=== PATIENT | female | born 1985 | race Caucasian/White ===

== ENCOUNTER 2021-05-09 12:54 | Outpatient (REF) | payer MEDICARE, MEDICAID, SELFPAY ==
--- NOTE | ~2021-05-09 | CT_ITS ---
EXAMINATION: CT CHEST WITHOUT CONTRAST CLINICAL INFORMATION: Status post lung transplant. COMPARISON: Chest radiograph dated from 06/21/2018. TECHNIQUE: Multidetector volumetric CT imaging of the chest was done. Axial MIP volume rendering provided. Sagittal and coronal reformatted images were obtained. This CT examination was performed using dose optimization techniques as appropriate, variously including the following: *Automated exposure control *Adjustment of mA and/or kV according to patient size (this includes techniques or standardized protocols for targeted exams where dose is matched to indication/reason for exam; i.e. 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 LUNGS: Peripheral dependent linear opacities favoring to represent mild subsegmental atelectasis. No focal airspace opacities, suspicious pulmonary nodules or masses. There is very subtle mosaic attenuation of the lung parenchyma in the lung bases which could be related with some degree of minimal air trapping. The central airways are patent. MEDIASTINUM: Normal heart size without pericardial effusion. No mediastinal nor hilar lymphadenopathy. Mediastinal surgical clips and sternotomy wires are identified. Normal appearance of the thyroid gland. PLEURA: There is no pleural effusion. No pleural mass or thickening. AXILLA: No lymphadenopathy. UPPER ABDOMEN: Unremarkable. OSSEOUS STRUCTURES: Unremarkable. CT/CT chest wo con IMPRESSION: No acute cardiothoracic abnormalities. No suspicious pulmonary nodules.
== END 2021-05-09 12:55 | disposition home or self-care (01) ==
LOC: HO.CT 12:54
PROVIDERS: PCP Physician Assistant; Visit Provider Internal Medicine Pulmonary Disease
DX: Z94.2 Lung transplant status (principal)
CPT/HCPCS: 71250

== ENCOUNTER 2023-03-02 14:50 | Emergency (ER) | payer MEDICARE, MEDICAID, SELFPAY ==
--- NOTE | ~2023-03-02 | XR_ITS ---
EXAMINATION: XR HAND, RIGHT CLINICAL INFORMATION: Thumb injury. Pain. COMPARISON: None available. TECHNIQUE: PA, lateral, and oblique views of the right hand. FINDINGS: There is amputation of the soft tissues adjacent to the distal tuft of the thumb. There is question of a nondisplaced fracture of the distal tuft of the thumb seen on the oblique view only. No soft tissue foreign body is seen. XR/XR hand RT min 3V IMPRESSION: Amputation of the soft tissues of the distal thumb. Question nondisplaced fracture of the distal tuft of the thumb.
[2023-03-02 14:57] VITALS: BP 128/79; PULSE 69; RESP 20; TEMP 36.4; O2SAT 99; BMI 23.8
--- NOTE | 2023-03-02 14:58 | ED_ITS ---
HPI - General Adult General Chief complaint: Wound/Laceration Stated complaint: r thumb laceration Time Seen by Provider: 03/02/23 15:43 Source: patient Mode of arrival: ambulatory Limitations: no limitations History of Present Illness HPI narrative: 37 yo female with history of cystic fibrosis s/p double lung transplant in [place] 8 years ago who presents to the ER today for evaluation after she cut the tip of her right thumb off with a mandolin while cutting sweet potatoes today. She reports excruciating pain and inability to stop the bleeding. She arrives to the ER with a dish towel on the finger and active oozing. She felt like she was going to pass out but is feeling a little better now. She is not on blood thinners. She denies any other injuries. MD complaint: right thumb tip avulsion Onset (ago): minute(s) Location: right and upper extremity Radiation: distal Severity: severe Severity scale (1-10): 10 Quality: burning, stabbing and aching Pain Consistency: constant Relieving factors: none and rest Exacerbating factors: other (palpation and movement) Associated symptoms: other (anxiety) Treatments prior to arrival: none Related Data Previous Rx's Medication Instructions Recorded amoxicillin 875 mg-potassium 1 tab PO BID #14 tabs 03/02/23 clavulanate 125 mg tablet oxycodone 5 mg tablet 5 mg PO Q6H PRN severe pain (scale 03/02/23 score 7-10) #10 tabs Allergies Allergy/AdvReac Type Severity Reaction Status Date / Time ceftazidime [CEFTAZIDIME] Allergy Unknown UNKNOWN Verified 03/02/23 15:47 ciprofloxacin [From Cipro] AdvReac Vomiting Verified 03/02/23 15:47 Ceftazidime Allergy Unknown hives Uncoded 02/09/12 00:00 Review of Systems Review of Systems: Yes all other systems are reviewed and are negative PMFSH Social History Social History Advance Directives: Yes Advance Directives Information Provided: No Advance Directives on File: No Physical Exam ED Vital Signs: Vital Signs - 24 hr 03/02/23 14:57 Temperature 97.6 F Pulse Rate 69 Respiratory Rate 20 Blood Pressure 128/79 Pulse Oximetry 99 Oxygen Delivery Method Room Air BMI result Body Mass Index 23.8 Appearance: Alert. Oriented X3. No acute distress. HEENT: normal inspection CVS: Normal heart rate and rhythm. Pulses normal. Respiratory: No respiratory distress. Skin: Skin warm and dry. Normal skin color. Normal skin turgor. No rashes. Extremities: right distal thumb with a complete avulsion of the tip, does not involve the nail. active oozing from the site. FROM of the digit. 2+ radial pulse Neuro: Oriented X 3. No motor deficit. No sensory deficit. Course Course Course Narrative: RME performed by Kasandra Nelson PA-C. Patient is a 37 year old assigned female at , history of CF - bilateral lung transplant, presenting to the emergency department with a right thumb injury. Patient was using a mandolin when she cut off the tip of her right thumb. R hand xr ordered. Patient placed back in the waiting room pending room availability and results. Reevaluation(s) Reevaluation #1: patient in a lot of pain and anxious. given oxycodone and ativan. finger placed combination of TXA and lidocaine with improvement in bleeding but not complete resolution surgicel applied with hemostatsis. sterile, bulky dressing applied and wound care d/w pt and family xr w/ possible nondisplaced distal tuft fx, abx started and will refer to Dr. Herring patient stable for d/c home as bleeding as stopped Time: 16:48 Medications Administered Discontinued Medications Generic Name Dose Route Start Last Admin Trade Name Freq PRN Reason Stop Dose Admin Diphtheria/Tetanus/Acell Pertussis 0.5 ml 03/02/23 14:59 03/02/23 15:47 Diphth,Pertus(Acell),Tet Adult 0.5 Ml Syringe IM 03/02/23 15:00 0.5 ml .ONCE ONE Administration Lidocaine HCl 5 ml 03/02/23 16:23 03/02/23 16:36 Lidocaine Hcl 1 % Mpf 5 Ml Vial SUBCUT 03/02/23 16:24 5 ml ONCE ONE Administration Lidocaine/Epinephrine 10 ml 03/02/23 16:19 03/02/23 16:36 Lidocaine Hcl 1% Pf/Epi 1:200,000 10 Ml Vial INFILTRATI 03/02/23 16:20 Not Given ONCE ONE Lidocaine/Epinephrine 20 ml 03/02/23 16:20 03/02/23 16:36 Lidocaine Hcl 1%/Epi 1:100,000 20 Ml Vial INFILTRATI 03/02/23 16:21 Not Given ONCE ONE Lidocaine/Epinephrine 10 ml 03/02/23 16:22 03/02/23 16:36 Lidocaine Hcl 2% Pf/Epi 1:200 10 Ml Vial INFILTRATI 03/02/23 16:23 Not Given ONCE ONE Lorazepam 1 mg 03/02/23 16:29 03/02/23 16:36 Lorazepam 1 Mg Tablet PO 03/02/23 16:30 1 mg ONCE ONE Administration Oxycodone HCl 5 mg 03/02/23 15:50 03/02/23 15:53 Oxycodone Hcl Immed Release 5 Mg Tablet PO 03/02/23 15:51 5 mg ONCE ONE Administration Oxycodone HCl 5 mg 03/02/23 16:29 03/02/23 16:35 Oxycodone Hcl Immed Release 5 Mg Tablet PO 03/02/23 16:30 5 mg ONCE ONE Administration Tranexamic Acid 500 mg 03/02/23 16:24 03/02/23 16:36 Tranexamic Acid 1,000 Mg/10 Ml Vial IRRIGATION 03/02/23 16:25 500 mg ONCE ONE Administration Medical Decision Making Medical Decision Making MDM Narrative: 37 yo female w/ hx CF presenting w/ right thumb tip avulsion after using a mandolin today. actively bleeding on arrival. placed in finger tourniquet and soaked in TXA and lidocaine. required premedication w/ oxycodone and now requesting ativan due to anxiety and incr eased pain. xr reviewed- - no acute fracture or bony involvement noted, however x-ray read possible nondisplaced acute fx of distal tuft. will start on abx and refer to hand specialist/ortho. patient counseled on wound care, return precautions Differential Diagnosis Differential Diagnoses: The differential diagnosis associated with the presentation includes finger avulsion, distal amputation, open finger fracture Independent Interpretation I performed an independent interpretation of an: Plain X-Ray Interpretation: xray without any displaced fx, agree w/ radiology read Radiology Impression Discussion of test interpretation with radiology: I have reviewed the radiologist's reading. Radiologist Impression: EXAMINATION: XR HAND, RIGHT CLINICAL INFORMATION: Thumb injury. Pain. COMPARISON: None available. TECHNIQUE: PA, lateral, and oblique views of the right hand. FINDINGS: There is amputation of the soft tissues adjacent to the distal tuft of the thumb. There is question of a nondisplaced fracture of the distal tuft of the thumb seen on the oblique view only. No soft tissue foreign body is seen. XR/XR hand RT min 3V IMPRESSION: Amputation of the soft tissues of the distal thumb. Question nondisplaced fracture of the distal tuft of the thumb. Independent Historian Clinical information obtained from an independent historian. History obtained from or confirmed by: Spouse External Record Review External record reviewed: Outpatient record, Prior outpatient labs and Prior outpatient radiology Prescription Management I considered prescription management with: Pain Medication and Antibiotic Chronic Conditions Patient?s care impacted by: Other (chronically immunosuppressed s/p bilateral lung transplant) Critical Care Time Critical Care Time Critical Care Time: No Discharge Plan Discharge Clinical Impression: Avulsion of skin of right thumb Qualifiers: Encounter type: initial encounter Qualified Code(s): S61.001A - Unspecified open wound of right thumb without damage to nail, initial encounter Patient Disposition: Home, Self-Care Instructions: Finger Amputation (ED) Additional Instructions: Your x-ray today showed possible nondisplaced fracture of the distal tuft of the thumb. You have partially avulsed the tip of the thumb off. Take the prescribed antibiotics as directed, complete the entire course and do not miss any doses Follow up with the Hand Specialist - call tomorrow to arrange an appointment If you have recurrent bleeding hold direct pressure to the area for 15 minutes. You can apply additional surgicel to the area to reinforce the dressing and help stop bleeding. Change the dressing daily Do not get wet for at least 48 hours. If you develop new or worsening symptoms call 911 or come back to the ER for further evaluation. Prescriptions: New amoxicillin-pot clavulanate 875-125 mg tablet 1 tab PO BID Qty: 14 0RF oxycodone 5 mg tablet 5 mg PO Q6H PRN (Reason: severe pain (scale score 7-10)) Qty: 10 0RF Rx Instructions: Partial Fill upon patient request. Referrals: [facility] [Provider Group] (XR/XR hand RT min 3V IMPRESSION: Amputation of the soft tissues of the distal thumb. Question nondisplaced fracture of the distal tuft of the thumb. ) Stand Alone Forms: Work/School Release Interventions: ED Discharge Assessment Last Done: 03/02/23 17:22 Discharge Date/Time: 03/02/23 17:23
[2023-03-02] MEDS: Diphth,Pertus(ACell),Tet Adult 0.5 ML SYRINGE IM (15:47)
[2023-03-02] MEDS: oxyCODONE HCl Immed Release 5 MG TABLET PO ×2 (15:53→16:35)
[2023-03-02] MEDS: Tranexamic Acid 1,000 MG/10 ML VIAL 500 MG IRRIGATION (16:36)
[2023-03-02] MEDS: LORazepam 1 MG TABLET PO (16:36)
[2023-03-02] MEDS: Lidocaine HCl 1 % MPF 5 ML VIAL SUBCUT (16:36)
== END 2023-03-02 17:23 | disposition home or self-care (01) ==
PROVIDERS: Emergency Provider Emergency Medicine Emergency Medical Services
DX: S61.011A Laceration without foreign body of right thumb without damage to nail, initial encounter (principal); S62.524A Nondisplaced fracture of distal phalanx of right thumb, initial encounter for closed fracture; S60.311A Abrasion of right thumb, initial encounter; W26.9XXA Contact with unspecified sharp object(s), initial encounter; Y93.9 Activity, unspecified; Y92.9 Unspecified place or not applicable; Y99.9 Unspecified external cause status; Z79.899 Other long term (current) drug therapy; Z23 Encounter for immunization
CPT/HCPCS: 73130; 90471; 90715; 99284

== ENCOUNTER 2023-03-09 08:56 | Outpatient (AMB) | payer MEDICARE, MEDICAID, SELFPAY ==
--- NOTE | 2023-03-09 08:58 | MHC.OFFVIS ---
Intake Intake Visit Reasons: OV-Right Thumb laceration Intake Note: Radha Treadwell is a 37 year old - hand female who presents today for a evaluation of her right thumb laceration, DOI 03/02/23. Patient reports she cut the tip of her right thumb off with a mandolin while cutting sweet potatoes. She states her thumb feels sore to touch. Allergies ceftazidime [CEFTAZIDIME] Allergy (Unknown, Verified 03/09/23 08:59) UNKNOWN ciprofloxacin [From Cipro] Adverse Reaction (Verified 03/09/23 08:59) Vomiting Ceftazidime Allergy (Unknown, Uncoded 02/09/12 00:00) hives HPI OV-Right Thumb laceration HPI Details 37-year-old female who presents in the office today, as a new patient, for an evaluation of right thumb amputation. The patient presented to the ED on 03/02/2023 status post cutting the tip of her right thumb off with a mandolin while cutting sweet potatoes. X-rays of the right hand were obtained. She was prescribed amoxicillin-pot clavulanate 875-125 mg PO BID and oxycodone 5 mg PO Q6H PRN. While in the office today she states her thumb feels sore to the touch. Review of Systems Const All systems reviewed & are unremarkable except as noted in HPI and below Physical Exam Const General: cooperative and no acute distress Orientation/consciousness: patient oriented x3 Resp Effort & Inspection: normal respiratory effort and able to speak in complete sentences Cardio Peripheral pulses: Peripheral pulses 2+ throughout Skin General skin exam: no rashes or lesions noted Neuro General: patient oriented x3 Extrem Other: Right thumb: Avulsion of skin at the tip of the right thumb. Minimal effect to the distal nail bed. No surrounding erythema or drainage. No signs of infection. Able to flex and extend at the IP and CMC joint. Sensation intact. Capillary refill is brisk. Office Procedures Fracture Care Fracture Billing Code: Fracture Billing Code Assessment & Plan Assessment & Plan (1) Open fracture of tuft of distal phalanx of right thumb: Code(s): S62.521B - Displaced fracture of distal phalanx of right thumb, initial encounter for open fracture (2) Avulsion of skin of right thumb: Code(s): S61.001A - Unspecified open wound of right thumb without damage to nail, initial encounter Qualifiers: Encounter type: initial encounter Qualified Code(s): S61.001A - Unspecified open wound of right thumb without damage to nail, initial encounter Plan Ms. Tariq is a 37-year-old female who presents in the office today, as a new patient, for an evaluation of right thumb amputation. The patient presented to the ED on 03/02/2023 status post cutting the tip of her right thumb off with a mandolin while cutting sweet potatoes. X-rays of the right hand were obtained. She was prescribed amoxicillin-pot clavulanate 875-125 mg PO BID and oxycodone 5 mg PO Q6H PRN. While in the office today she states her thumb feels sore to the touch. Surgicel was applied at the ED. This was removed while in the office today. Patient was extremely apprehensive of this. She tolerated the procedure well. The wound was redressed with Xeroform and a bandaid. She should avoid getting the area wet. She has been taking amoxicillin-pot , with today being her last dose. She was educated on signs of infection, which are as follows but not limited to erythema, edema, drainage, or warmth. If she is to experience any of these symptoms she is to contact the office immediately or present to the ED. She will be given supplies while in the office today to allow for once daily dressing changes. Follow up will be in 1 week for a wound check, or sooner if needed. X-rays of the right hand, obtained on 03/02/2023, revealed: 1. Amputation of the soft tissues of the distal thumb. 2. Question nondisplaced fracture of the distal tuft of the thumb. Patient Instructions: Scribed for Carrie Roger PA-C by Nandini Pedraza certified medical transcriptionist, on 03/09/2023 at 9:08 am, EST. Coding Level of Care Code New Pt Level 4 (73623) Diagnoses Open fracture of tuft of distal phalanx of right thumb S62.521B Avulsion of skin of right thumb S61.001A Encounter type: initial encounter CPT Codes Fracture Care - Fracture Billing Code: Fracture Billing Code ([id number])
== END 2023-03-09 09:57 | disposition home or self-care (01) ==
PROVIDERS: Visit Provider Physician Assistant
DX: S61.001A Unspecified open wound of right thumb without damage to nail, initial encounter (principal); Z48.00 Encounter for change or removal of nonsurgical wound dressing
CPT/HCPCS: 99204

== ENCOUNTER → 2023-03-09 08:56 | Outpatient (BNVA) | payer MEDICARE, MEDICAID, SELFPAY | PROVIDERS: Visit Provider Physician Assistant | DX: S61.011A Laceration without foreign body of right thumb without damage to nail, initial encounter (principal); W26.8XXA Contact with other sharp object(s), not elsewhere classified, initial encounter; Y93.G3 Activity, cooking and baking; Y92.9 Unspecified place or not applicable; Y99.9 Unspecified external cause status | CPT/HCPCS: 99202 ==

== ENCOUNTER 2023-07-31 10:21 | Emergency (ER) | payer OTHER, MEDICARE, MEDICAID, SELFPAY ==
--- NOTE | 2023-07-31 11:05 | ED_ITS ---
HPI - Wound/Laceration General Chief Complaint: Animal Bite Stated Complaint: Dog Bite Work Injury 07/31/23 Time Seen by Provider: 07/31/23 11:15 Source: patient Mode of arrival: ambulatory Limitations: no limitations History of Present Illness HPI narrative: 37 year old female with a past history cystic fibrosis s/p bilateral lung transplant years ago presents emergency department complaints a dog bite to the anterior and ankle which. 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 She reports the dog is roughly 15- 20 lbs. She states she did the clean up helper banquet whether not up-to-date on vaccines. She reports she has 3-4 is left anterior thigh, with controlled bleeding, and 1 wound on the medial left ankle which did not break the skin. She denies any weakness, paresthesias, or change in gait or range of motion. Related Data Previous Rx's Medication Instructions Recorded amoxicillin 875 mg-potassium 1 tab PO BID #14 tabs 03/02/23 clavulanate 125 mg tablet oxycodone 5 mg tablet 5 mg PO Q6H PRN severe pain (scale 03/02/23 score 7-10) #10 tabs amoxicillin 875 mg-potassium 1 tab PO Q12H 7 days #14 tabs 07/31/23 clavulanate 125 mg tablet Allergies Allergy/AdvReac Type Severity Reaction Status Date / Time ceftazidime [CEFTAZIDIME] Allergy Unknown UNKNOWN Verified 07/31/23 11:06 ciprofloxacin [From Cipro] AdvReac Vomiting Verified 07/31/23 11:06 Ceftazidime Allergy Unknown hives Uncoded 07/31/23 11:06 Review of Systems Review of Systems: Yes all other systems are reviewed and are negative Physical Exam Vital Signs: Vital Signs: Last Vital Signs Temp 98 F 07/31/23 11:06 Pulse 70 07/31/23 11:06 Resp 18 07/31/23 11:06 BP 168/96 H 07/31/23 11:06 Pulse Ox 100 07/31/23 11:06 O2 Del Method Room Air 07/31/23 11:06 BMI result Body Mass Index 24.5 Nursing notes and vital signs reviewed. GENERAL APPEARANCE: A&0 x 4, generally well appearing, no acute distress HENMT: Normal to inspection, atraumatic, face symmetrical. Normal external ears, nose, and oropharynx clear. EYE: PERRLA, EOM intact, structures appear normal NECK: Supple without stiffness or restricted ROM. HEART: Normal rate and regular rhythm, normal S1/S2, no M/R/G LUNGS: LS CTA, moving air well. Able to speak in complete sentences. No crackles, wheezes, or rhonchi auscultated BACK: No CVAT, no obvious deformity EXTREMITIES: Moving all extremities without difficulty. Normal capillary refill. Superficial wounds left anterior thigh with swelling and eccymosis noted. 2 mm wound left medial ankle NEUROLOGICAL: Alert and oriented, moving all 4 extremities with equal strength. CN not formally tested but appearing grossly intact. Observed to ambulate with normal gait. Cognition normal SKIN: Warm and dry without any lesions, rash, or visible sores Course Course Course Narrative: This is a rapid medical exam: Additional HPI, ROS, PE not included below will be deferred to primary provider. 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 Did not ask the dog clean up helper banquet about dog's vaccinations. HX double lung transplant 8 years ago for cystic fibrosis. Medical Decision Making Medical Decision Making MDM Narrative: Old records reviewed for previous imaging, lab studies, ECGs, and notes. Patient was assessed the emergency department with no acute distress or toxicity noted. Superficial wounds noted on left anterior thigh. No evidence of punture wounds. Swelling and eccymosis noted. Wound cleansed with hydrogen peroxide and water and dressed. Plan for 7 day course of antibiotics for infection prevention. Pt educated to keep wound clean and dry and use topical antibiotic ointment twice a day. Patient is safe for discharge at this time with plan for [id number] Tylenol and/or NSAID such as ibuprofen or naproxen for fever/discomfort with dosing as per packaging. HPI, PE, diagnostics, and plan discussed with patient and family with no unanswered questions at this time. Strict return precautions given to return to the emergency department with new, worsening, or concerning emergent symptoms. Recommended to follow-up with there primary care provider in 24-48 hours for further treatment and management. Differential Diagnosis Differential Diagnoses: The differential diagnosis associated with the presentation includes but not limited to animal bite, contusion, abrasion, laceration, puncture wound, strain, sprain, cellulitis, sepsis Discharge Plan Discharge Clinical Impression: Dog bite of thigh Instructions: Animal Bite (ED) Prescriptions: New amoxicillin-pot clavulanate 875-125 mg tablet 1 tab PO Q12H 7 Days Qty: 14 0RF No Action amoxicillin-pot clavulanate 875-125 mg tablet 1 tab PO BID Qty: 14 0RF oxycodone 5 mg tablet 5 mg PO Q6H PRN (Reason: severe pain (scale score 7-10)) Qty: 10 0RF Rx Instructions: Partial Fill upon patient request.
[2023-07-31 11:06] VITALS: BP 168/96; PULSE 70; RESP 18; TEMP 36.6; O2SAT 100; BMI 24.5
[2023-07-31 12:53] VITALS: BP 134/84; PULSE 84; RESP 16; TEMP 37; O2SAT 98
--- NOTE | 2023-07-31 12:58 | ED.ANIMALBIT ---
HPI - Animal Bite General Chief Complaint: Animal Bite Stated Complaint: Dog Bite Work Injury 07/31/23 Time Seen by Provider: 07/31/23 11:15 Source: patient Mode of arrival: ambulatory Limitations: no limitations History of Present Illness MD complaint: animal bite Related Data Previous Rx's Medication Instructions Recorded amoxicillin 875 mg-potassium 1 tab PO BID #14 tabs 03/02/23 clavulanate 125 mg tablet oxycodone 5 mg tablet 5 mg PO Q6H PRN severe pain (scale 03/02/23 score 7-10) #10 tabs amoxicillin 875 mg-potassium 1 tab PO Q12H 7 days #14 tabs 07/31/23 clavulanate 125 mg tablet Allergies Allergy/AdvReac Type Severity Reaction Status Date / Time ceftazidime [CEFTAZIDIME] Allergy Unknown UNKNOWN Verified 07/31/23 11:06 ciprofloxacin [From Cipro] AdvReac Vomiting Verified 07/31/23 11:06 Ceftazidime Allergy Unknown hives Uncoded 07/31/23 11:06 Physical Exam ED Vital Signs: Vital Signs - 24 hr 07/31/23 11:06 07/31/23 12:53 07/31/23 14:33 Temperature 98 F 98.6 F 98.4 F Pulse Rate 70 84 69 Respiratory Rate 18 16 19 Blood Pressure 168/96 H 134/84 164/93 H Pulse Oximetry 100 98 99 Oxygen Delivery Method Room Air Room Air Room Air 07/31/23 14:58 Temperature 98.4 F Pulse Rate 69 Respiratory Rate 18 Blood Pressure 164/93 H Pulse Oximetry 99 Oxygen Delivery Method Room Air BMI result Body Mass Index 24.5 Medications Administered Discontinued Medications Generic Name Dose Route Start Last Admin Trade Name Freq PRN Reason Stop Dose Admin Acetaminophen 650 mg 07/31/23 14:27 07/31/23 14:55 Acetaminophen 325 Mg Tablet PO 07/31/23 14:28 650 mg ONCE ONE Administration Rabies Immune Globulin 1,216 unit 07/31/23 12:55 07/31/23 13:34 Rabies Immune Globulin/Pf 900 Unit/3 Ml Vial 20 unit/kg (1216 unit) 07/31/23 12:56 1,216 unit IM Administration ONCE ONE Rabies Vaccine Human Diploid Cell 1 ml 07/31/23 12:55 07/31/23 13:34 Rabies Vaccine, Human Diploid (Imovax) 1 Ml Vial IM 07/31/23 12:56 1 ml .ONCE ONE Administration Discharge Plan Discharge Clinical Impression: Dog bite of thigh Patient Disposition: Home, Self-Care Instructions: Animal Bite (ED) Prescriptions: New amoxicillin-pot clavulanate 875-125 mg tablet 1 tab PO Q12H 7 Days Qty: 14 0RF No Action amoxicillin-pot clavulanate 875-125 mg tablet 1 tab PO BID Qty: 14 0RF oxycodone 5 mg tablet 5 mg PO Q6H PRN (Reason: severe pain (scale score 7-10)) Qty: 10 0RF Rx Instructions: Partial Fill upon patient request. Stand Alone Forms: Work/School Release Interventions: ED Discharge Assessment Last Done: 07/31/23 14:58 Discharge Date/Time: 07/31/23 15:00 Print Language: Macedonian
[2023-07-31] MEDS: Rabies Immune Globulin/PF 900 UNIT/3 ML VIAL 1216 UNIT IM (13:34)
[2023-07-31] MEDS: Rabies Vaccine, Human Diploid (Imovax) 1 ML VIAL IM (13:34)
[2023-07-31 14:33] VITALS: BP 164/93; PULSE 69; RESP 19; TEMP 36.9; O2SAT 99
[2023-07-31] MEDS: Acetaminophen 325 MG TABLET 650 MG PO (14:55)
[2023-07-31 14:58] VITALS: BP 164/93; PULSE 69; RESP 18; TEMP 36.9; O2SAT 99
[2023-08-01 01:40] LABS: Glucose, Whole Blood 89 mg/dL (60-115)
== END 2023-07-31 15:00 | disposition home or self-care (01) ==
PROVIDERS: Emergency Provider Emergency Medicine; PCP Registered Nurse
DX: S70.372A Other superficial bite of left thigh, initial encounter (principal); S90.572A Other superficial bite of ankle, left ankle, initial encounter; Z20.3 Contact with and (suspected) exposure to rabies; Z29.14 Encounter for prophylactic rabies immune globulin; E84.9 Cystic fibrosis, unspecified; Z94.2 Lung transplant status; W54.0XXA Bitten by dog, initial encounter; Y93.9 Activity, unspecified; Y92.9 Unspecified place or not applicable; Y99.0 Civilian activity done for income or pay
CPT/HCPCS: 82947; 90375; 90471; 90675; 96372; 99284

== ENCOUNTER 2023-08-03 11:55 | Outpatient (REF) | payer OTHER, MEDICARE, MEDICAID, SELFPAY ==
[2023-08-03 12:00] VITALS: BP 117/74; PULSE 68; RESP 18; TEMP 36.8; O2SAT 98
[2023-08-03] MEDS: Rabies Vaccine, Human Diploid (Imovax) 1 ML VIAL IM (12:11)
== END 2023-08-03 11:56 | disposition home or self-care (01) ==
LOC: HO.MDS 11:55
PROVIDERS: Visit Provider Emergency Medicine
DX: Z20.3 Contact with and (suspected) exposure to rabies (principal); S71.152D Open bite, left thigh, subsequent encounter; W54.0XXD Bitten by dog, subsequent encounter
CPT/HCPCS: 90471; 90675

== ENCOUNTER 2023-08-07 11:48 | Outpatient (REF) | payer OTHER, MEDICARE, MEDICAID, SELFPAY ==
[2023-08-07 11:59] VITALS: BP 134/84; PULSE 88; RESP 18; TEMP 36.7; O2SAT 96
[2023-08-07] MEDS: Rabies Vaccine, Human Diploid (Imovax) 1 ML VIAL IM (12:09)
== END 2023-08-07 11:49 | disposition home or self-care (01) ==
LOC: HO.MDS 11:48
PROVIDERS: Visit Provider Emergency Medicine
DX: Z20.3 Contact with and (suspected) exposure to rabies (principal); S71.152D Open bite, left thigh, subsequent encounter; W54.0XXD Bitten by dog, subsequent encounter
CPT/HCPCS: 90471; 90675